=== PATIENT | male | born 1980 | race Two or more races ===

== ENCOUNTER 2016-11-06 12:55 | Emergency (ER) | payer SELFPAY ==
[2016-11-06 13:00] VITALS: TEMP 98.5; BMI 28.3
--- NOTE | 2016-11-06 13:52 | PDOC ---
*Physical Exam - Vital Signs Last Vital Signs Temp Pulse Resp BP Pulse Ox 98.5 F 104 H 18 156/97 96 11/06/16 12:55 11/06/16 12:55 11/06/16 12:55 11/06/16 12:55 11/06/16 12:55 - Physical Exam Comments: 11/06/16 13:52 MIDLEVEL NOTE Pt seen by Midlevel Provider under my direct supervision. Pt interviewed and examined. Ancillary studies reviewed. I agree with plan as outlined by Midlevel Provider. EKG Normal sinus rhythm 96, 0 axis Normal AV and IV conduction time Normal QTC Normal EKG 11/06/16 17:37 Laboratory Results - last 24 hr 11/06/16 11/06/16 11/06/16 14:22 14:22 14:25 WBC 11.8 H RBC 5.37 Hgb 15.7 Hct 45.8 MCV 85.3 MCHC 34.4 RDW 12.4 Plt Count 282 MPV 7.0 L Neutrophils % 75.7 Lymphocytes % 14.0 Monocytes % 8.6 Eosinophils % 1.2 Basophils % 0.5 D-Dimer Sodium 141 Potassium 3.9 Chloride 101 Carbon Dioxide 25 Anion Gap 15 BUN 8 Creatinine 0.7 Creat Clearance w eGFR > 60 Random Glucose 93 Calcium 9.5 Magnesium 2.4 Total Bilirubin 1.1 H AST 30 ALT 95 H Alkaline Phosphatase 89 Creatine Kinase 333 H Creatine Kinase Index 0.6 CK-MB (CK-2) 2.195 CK-MB (CK-2) Rel Index Cancelled Troponin I < 0.02 Total Protein 8.7 H Albumin 4.2 11/06/16 14:25 WBC RBC Hgb Hct MCV MCHC RDW Plt Count MPV Neutrophils % Lymphocytes % Monocytes % Eosinophils % Basophils % D-Dimer < 200 Sodium Potassium Chloride Carbon Dioxide Anion Gap BUN Creatinine Creat Clearance w eGFR Random Glucose Calcium Magnesium Total Bilirubin AST ALT Alkaline Phosphatase Creatine Kinase Creatine Kinase Index CK-MB (CK-2) CK-MB (CK-2) Rel Index Troponin I Total Protein Albumin 11/06/16 17:38 Chest x-ray-NAD ED Treatment Course - LABORATORY CBC & Chemistry Diagram: 11/06/16 14:25 11/06/16 14:22 - RADIOLOGY Radiology Studies Ordered: Category Date Time Status CHEST PA & LAT [RAD] Stat Radiology 11/06/16 13:30 Completed *DC/Admit/Observation/Transfer Diagnosis at time of Disposition: Anxiety, ETOH abuse - Discharge Dispostion Disposition: HOME Condition at time of disposition: Good - Referrals Referrals: Barb Stanley MD [Staff Physician] - - Patient Instructions Printed Discharge Instructions: Anxiety and Panic Attacks (Alternative Therapy) , DI for Anxiety -- Adult Additional Instructions: Although your lab work and x-ray were negative for acute findings I do recommend that you consider changing your lifestyle such as decreasing your alcohol intake, eating well balanced meals and following up with referred physician
[2016-11-06] MEDS ORDERED: FOLIC ACID INJECTION - 1 MG, THIAMINE HCL 100 MG, MULTIVIT INJECTION ADULT 10 ML in SOD... IVPB ONE (14:23)
[2016-11-06 14:30] LABS: BASOPHIL 0.5 % (0-2.0); EOSINOPHIL 1.2 % (0-4.5); MCH 29.3 pg (25.7-33.7); MCHC 34.4 g/dl (32.0-35.9); MEAN CELL VOLUME 85.3 fl (80-96); NEUTROPHILS 75.7 % (42.8-82.8); PLATELET COUNT 282 K/MM3 (134-434); RDW 12.4 % (11.9-15.9); WHITE BLOOD COUNT 11.8 K/mm3 (4.0-10.0)
[2016-11-06 14:57] LABS: ALBUMIN 4.2 g/dl (3.4-5.0); ANION GAP 15 (8-16); CALCIUM 9.5 mg/dL (8.5-10.1); CO2 25 mmol/L (21-32); GLUCOSE,RANDOM 93 mg/dL (74-106); MAGNESIUM 2.4 mg/dL (1.8-2.4)
[2016-11-06 15:04] LABS: ALK PHOS 89 U/L (45-117); BILIRUBIN,TOTAL 1.1 mg/dL (0.2-1.0); COCKROFT - GAULT 160.64; CREATININE 0.7 mg/dL (0.7-1.3); SGOT/AST 30 U/L (15-37); SGPT/ALT 95 U/L (12-78); TOT PROT 8.7 g/dl (6.4-8.2); TROPONIN I < 0.02 ng/ml (0.00-0.05)
--- NOTE | 2016-11-06 15:08 | PDOC ---
History of Present Illness - General Chief Complaint: Chest Pain Stated Complaint: CHEST PAIN, SOB Time Seen by Provider: 11/06/16 13:43 History Source: Patient Exam Limitations: No Limitations - History of Present Illness Initial Comments: 11/06/16 15:09 35-year-old male presents the ED with complaints of chest pain since yesterday which he describes the tightness to the mid sternal region radiating to his left substernal region. Patient states has also had decreased appetite, increased fatigue, decreased hours of sleep and states feels stressed out. Patient states works at a [employer] and does not perform exertional exercises but states he drinks approximately 67 beers daily and does not have a PCP. Patient denies palpitations, shortness of breath, headache, dizziness nausea, or lower extremity edema. Patient denies familial cardiac history and drug use. Presenting Symptoms: Chest Pain Timing/Duration: reports: intermittent Severity/Quality: reports: moderate, tightness Location: reports: substernal Chest Pain Radiation: reports: no radiation Activities at Onset: reports: none Prior Chest Pain/Cardiac Workup: reports: No prior chest pain Associated Symptoms: Yes: Loss of Appetite, Weakness Past History - Past Medical History Allergies/Adverse Reactions: Allergies Allergy/AdvReac Type Severity Reaction Status Date / Time No Known Allergies Allergy Verified 11/06/16 13:00 Home Medications: Ambulatory Orders NK [No Known Home Medication] 11/06/16 - Psycho/Social/Smoking Cessation Hx Anxiety: No Suicidal Ideation: No Smoking Status: No Smoking History: Former smoker Have you smoked in the past 12 months: No Number of Cigarettes Smoked Daily: 0 Information on smoking cessation initiated: No Substance Use Type: Alcohol Patient Lives Alone: Yes Lives with/in: aunt Review of Systems - Review of Systems Able to Perform ROS?: Yes Constitutional: Yes: Loss of Appetite HEENTM: No: Symptoms Reported Respiratory: No: Symptoms reported Cardiac (ROS): Yes: Syncope ABD/GI: No: Symptoms Reported : No: Symptoms Reported Musculoskeletal: No: Symptoms Reported Integumentary: No: Symptoms Reported Psychiatric: Yes: Anxiety, Stressors, Sleep Pattern Change, Change in Appetite Endocrine: No: Symptoms Reported Hematologic/Lymphatic: No: Symptoms Reported *Physical Exam - Vital Signs Last Vital Signs Temp Pulse Resp BP Pulse Ox 98.5 F 97 H 16 148/104 97 11/06/16 12:55 11/06/16 14:26 11/06/16 14:26 11/06/16 14:26 11/06/16 14:26 - Physical Exam General Appearance: Yes: Nourished, Appropriately Dressed. No: Apparent Distress HEENT: positive: EOMI, GEMA, TMs Normal, Pharynx Normal. negative: Pale Conjunctivae Neck: positive: Supple Respiratory/Chest: positive: Lungs Clear, Normal Breath Sounds. negative: Respiratory Distress, Accessory Muscle Use Cardiovascular: positive: Regular Rhythm, Tachycardia. negative: Murmur Gastrointestinal/Abdominal: positive: Soft. negative: Tenderness Integumentary: positive: Normal Color, Warm, Moist Neurologic: positive: Normal Mood/Affect, Motor Strength 11/16 ED Treatment Course - LABORATORY CBC & Chemistry Diagram: 11/06/16 14:25 11/06/16 14:22 - ADDITIONAL ORDERS Additional order review: Laboratory Results 11/06/16 11/06/16 11/06/16 14:25 14:22 14:22 D-Dimer < 200 Sodium 141 Potassium 3.9 Chloride 101 Carbon Dioxide 25 Anion Gap 15 BUN 8 Creatinine 0.7 Creat Clearance w eGFR > 60 Random Glucose 93 Calcium 9.5 Magnesium 2.4 Total Bilirubin 1.1 H AST 30 ALT 95 H Alkaline Phosphatase 89 Creatine Kinase 333 H Creatine Kinase Index 0.6 CK-MB (CK-2) 2.195 CK-MB (CK-2) Rel Index Cancelled Troponin I < 0.02 Total Protein 8.7 H Albumin 4.2 11/06/16 14:25 RBC 5.37 MCV 85.3 MCHC 34.4 RDW 12.4 MPV 7.0 L Neutrophils % 75.7 Lymphocytes % 14.0 Monocytes % 8.6 Eosinophils % 1.2 Basophils % 0.5 - RADIOLOGY Radiology Studies Ordered: Category Date Time Status CHEST - PA [RAD] Stat Radiology 11/06/16 14:19 Completed Medical Decision Making - Medical Decision Making 11/06/16 15:12 Patient with complaints of chest tightness, increased stress, and poor by mouth intake for the past 2 days. Patient also states drinks 6-7 beers daily but denies any tremors, history of seizures, abdominal pain, or abdominal distention. Patient appears anxious during my exam and her but recently from 94 to about 107. Due to patient's history patient will have labs including EKG, chest x-ray , d-dimer banana bag ordered. We'll reevaluate shortly. 11/06/16 17:16 11/06/16 17:17 Laboratory Tests 11/06/16 11/06/16 11/06/16 14:22 14:25 14:25 Hgb 15.7 Hct 45.8 MCV 85.3 Plt Count 282 MPV 7.0 L Neutrophils % 75.7 Lymphocytes % 14.0 D-Dimer < 200 Sodium 141 Potassium 3.9 Chloride 101 Carbon Dioxide 25 Anion Gap 15 BUN 8 Creatinine 0.7 Random Glucose 93 Calcium 9.5 Magnesium 2.4 Total Bilirubin 1.1 H ALT 95 H Creatine Kinase 333 H Creatine Kinase Index 0.6 Troponin I < 0.02 Total Protein 8.7 H Chest x-ray negative for acute findings. Will discharge patient home to follow- up with the clinic and avoid alcohol use *DC/Admit/Observation/Transfer Diagnosis at time of Disposition: Anxiety, Alcohol abuse - Discharge Dispostion Disposition: HOME Condition at time of disposition: Good - Referrals Referrals: Barb Stanley MD [Staff Physician] - - Patient Instructions Printed Discharge Instructions: DI for Anxiety -- Adult, Anxiety and Panic Attacks (Alternative Therapy) Additional Instructions: Although your lab work and x-ray were negative for acute findings I do recommend that you consider changing your lifestyle such as decreasing your alcohol intake, eating well balanced meals and following up with referred physician
[2016-11-06 18:52] VITALS: BP 140/92; PULSE 89
--- NOTE | 2016-11-07 12:30 | EKG ---
Test Reason : Blood Pressure : / mmHG Vent. Rate : 096 BPM Atrial Rate : 096 BPM P-R Int : 180 ms QRS Dur : 078 ms QT Int : 332 ms P-R-T Axes : 051 -01 032 degrees QTc Int : 419 ms NORMAL SINUS RHYTHM NORMAL ECG NO PREVIOUS ECGS AVAILABLE Confirmed by SIVAKUMAR SOLIS MD ([id number] on 11/07/2016 12:30:11 PM Referred By: TRIAGE Confirmed By:SIVAKUMAR SOLIS MD
== END 2016-11-06 18:52 | disposition home or self-care (01) ==
LOC: JER 12:55
PROC: 3E0337Z Introduction of Electrolytic and Water Balance Substance into Peripheral Vein, Percutaneous Approach (ICD-10-PCS; principal; 2016-11-06)
DX: F41.8 Other specified anxiety disorders (principal); F10.10 Alcohol abuse, uncomplicated
CPT/HCPCS: 36415; 71010-TC; 71020-TC; 80053; 82550; 82553; 83735; 84484; 85025; 85379; 93005; 93010; 99283-25

== ENCOUNTER 2023-09-09 00:18 | Emergency (ER) | payer SELFPAY ==
[2023-09-09 00:32] VITALS: BP 150/96; PULSE 105; RESP 20; TEMP 97.6; BMI 31.6
[2023-09-09 01:11] LABS: BASO % 0.6 % (0-2.0); EOS % 3.6 % (0-4.5); HEMATOCRIT 47.1 % (35.4-49); HEMOGLOBIN 16.9 GM/dL (11.7-16.9); LYMPH % 46.1 % (8-40); MCHC 35.8 g/dl (32.0-35.9); MEAN CELL VOLUME 86.5 fl (80-96); MEAN PLT VOLUME 6.5 fl (7.5-11.1); MONO % 9.1 % (3.8-10.2); NEUT % 40.6 % (42.8-82.8); PLATELET COUNT 363 10^3/uL (134-434); RBC 5.45 M/mm3 (4.00-5.60); RDW 12.6 % (11.9-15.9)
[2023-09-09] MEDS ORDERED: LIDOCAINE 1%/EPI 1:100000 (20 ML MULTI DOSE VIAL) ONE (01:37)
[2023-09-09 02:06] LABS: POTASSIUM 4.7 mmol/L (3.5-5.1)
[2023-09-09 02:08] LABS: CALCIUM 9.3 mg/dL (8.5-10.1)
[2023-09-09 02:09] LABS: ALBUMIN 4.3 g/dl (3.4-5.0); BLOOD UREA NITROGEN 10.5 mg/dL (7-18)
[2023-09-09 02:12] LABS: CREATININE 0.9 mg/dL (0.55-1.3)
[2023-09-09 02:13] LABS: BILIRUBIN,TOTAL 0.5 mg/dL (0.2-1); TOT PROT 9.3 g/dl (6.4-8.2)
[2023-09-09] MEDS ORDERED: DIPHTH,PERTUSS(ACELL),TET 0.5 ML DISP.SYRIN IM ONE (02:38)
[2023-09-09] MEDS: DIPHTH,PERTUSS(ACELL),TET 0.5 ML DISP.SYRIN IM ONE (02:39)
== END 2023-09-09 02:27 | disposition home or self-care (01) ==
LOC: JER 00:18
PROC: 0HQ0XZZ Repair Scalp Skin, External Approach (ICD-10-PCS; principal; 2023-09-09)
PROC: 3E0234Z Introduction of Serum, Toxoid and Vaccine into Muscle, Percutaneous Approach (ICD-10-PCS; 2023-09-09)
DX: S01.01XA Laceration without foreign body of scalp, initial encounter (principal); F10.129 Alcohol abuse with intoxication, unspecified; W01.0XXA Fall on same level from slipping, tripping and stumbling without subsequent striking against object, initial encounter
CPT/HCPCS: 36415; 70450-TC; 72125-TC; 80053; 80307; 85025; 90715; 99284-25

== ENCOUNTER 2023-09-16 20:43 | Emergency (ER) | payer SELFPAY ==
[2023-09-16 20:49] VITALS: BP 161/95; PULSE 96; RESP 18; TEMP 98.5; BMI 30.6
[2023-09-16] MEDS ORDERED: BACITRACIN ZINC 15 GM TUBE TOPICAL OINTMENT ONE (21:04)
[2023-09-16] MEDS: BACITRACIN 0.9 GM PACKET TP ONE (21:05)
== END 2023-09-16 21:15 | disposition home or self-care (01) ==
LOC: JER 20:43 → JERFT 20:43
DX: Z48.02 Encounter for removal of sutures (principal)
CPT/HCPCS: 99281-25